=== PATIENT | male | born 1965 | race Caucasian/White ===

== ENCOUNTER 2017-05-27 11:17 | Outpatient (CLI) | payer OTHER | END 2017-05-27 11:18 | disposition home or self-care (01) | LOC: SC 11:17 | PROVIDERS: ATTEND Internal Medicine Pulmonary Disease | DX: G47.33 Obstructive sleep apnea (adult) (pediatric) (principal) | CPT/HCPCS: 99203; 99212 ==

== ENCOUNTER 2019-04-20 14:00 | Outpatient (CLI) | payer OTHER ==
--- NOTE | 2019-04-20 17:03 | SLEEP CARE CONSULTATION ---
Information from patient questionnaire entered by Guerda Nam. I have reviewed and concur with the information entered by Guerda Nam. This document represents the service I personally performed and the decisions made by me, Jsoe Leroy MD, [facility]. History of Present Illness Previous diagnosis: Moderate, Obstructive Sleep Apnea-Hypopnea Syndrome AHI: 24.2 Reason for follow up: annual (last seen 2018) Equipment type: CPAP Equipment obtained from: [employer] Mask style: Nasal pillows Mask brand: Resmed HPI additional information: HPI: Mr. Mayberry returned today for follow up of nasal CPAP therapy. He was diagnosed to have moderate obstructive sleep apnea-hypopnea syndrome. The patient wears a Respironics DreamWear full face mask. [employer] is his durable medical supplier. He reports using the device nightly and all through the night. The patient did not bring his memory card. He complained of occasional facial discomfort but no particular problem with the device such as dry nose, epistaxis, nasal congestion or headache. He thinks that the pressure of 12 cmH2O is comfortable. On the CPAP therapy he notices improvement in his sleep quality, and that he wakes up feeling fresher in the morning and more awake/alert during the day. His notices no snore at all. Subjective Patient concerns: reports: mask discomfort Initial [place] Sleepiness Scale score: 6 (in 2009) Current [place] Sleepiness Scale score: 4 Allergies and Home Medications Drug allergies reviewed: Yes Home medication list reviewed: Yes Review of Systems Review of systems same as previous: Yes Physical Exam Height: 5 ft 10 in Weight: 205 lb Body Mass Index: 29.4 BMI Classification: Overweight Impression and Plan IMPRESSION: 1. Obstructive Sleep Apnea-Hypopnea Syndrome, moderate, with the patient doing well on nasal CPAP therapy. He has excellent compliance and significant clinical improvement. The current pressure is comfortable but the effectiveness is unknown. His mask fits well. Overall, he is very satisfied with treatment and plans to continue with it long-term. No adjustment is necessary today. Because the CPAP is now older than the useful life of 5 years, I will order the patient a new one and make it an autoCPAP set between 10 and 14 cmH2O. PLAN: 1. Prescription made for an autoCPAP, heated humidifier, and related supplies. 2. Try to lose weight 3. Return for follow up after one month on the new machine. I spent 100% of this visit face to face with the patient with greater than 50% of this was spent time counseling the patient and coordination of care.
== END 2019-04-20 14:01 | disposition home or self-care (01) ==
LOC: SC 14:00
PROVIDERS: ATTEND Internal Medicine Pulmonary Disease
DX: G47.33 Obstructive sleep apnea (adult) (pediatric) (principal); E66.3 Overweight; Z68.29 Body mass index [BMI] 29.0-29.9, adult
CPT/HCPCS: 99212; 99213

== ENCOUNTER 2019-06-07 16:17 | Outpatient (CLI) | payer OTHER ==
--- NOTE | 2019-06-07 11:01 | SLEEP CARE CONSULTATION ---
Information from patient questionnaire entered by Libby Bauman. I have reviewed and concur with the information entered by Libby Bauman. This document represents the service I personally performed and the decisions made by me, Louise Fuller, RN, MSN, [employer]. History of Present Illness Service Date and Time: 06/07/2019 1030 Previous diagnosis: Moderate, Obstructive Sleep Apnea-Hypopnea Syndrome AHI: 24.2 Reason for follow up: first compliance after device update Equipment type: CPAP Equipment obtained from: [employer] (getting supplies as needed) Mask style: Full face Backup mask available: Yes (old mask) Last cushion change: none since set up - aware to update as needed CPAP Compliance Data - Data Reviewed with Patient Average duration of nightly device use: 7h 33m Compliance rate %: 100 Current pressure setting (cmH2O): 10-14 Humidity settin Heated hose settin Average residual AHI: 1.9 Average large leak: 6m 56s Subjective Patient concerns: reports: other (does not turn on with breath intake as previous device - inconvenient due to placement of CPAP ). denies: aerophagia, mask discomfort, air blowing in eyes, mask leak noise, condensation in mask/hose, nasal congestion, dry mouth, nose, throat, epistaxis Observed to snore while using device: No Current pressure setting perceived as: no as high as before -different - no air hunger On therapy, patient: reports: awakening more refreshed, being more awake and alert during the day, more rested overall, other. denies: sleeping better (not for past 5-6 weeks ), drowsiness while driving Initial [place] Sleepiness Scale score: 6 (in 2010) Allergies and Home Medications Home medication list reviewed: No (no changes) Review of Systems Review of systems same as previous: Yes Physical Exam Height: 5 ft 10 in Weight: 208 lb (home weight) Body Mass Index: 29.8 BMI Classification: Overweight Impression and Plan 1. Obstructive Sleep Apnea-Hypopnea Syndrome, moderate , with good treatment compliance and good apnea control. On CPAP therapy, the patient is more rested overall. Sleep quality is less the past 5-6 weeks due to things on mind with current pandemic. Thus he was advised to incorporate writing out concerns as a release and then engage in quiet activity until tired. This can be done before bed or when awakens. If still sleep concerns, he is to notify this office for further evaluation and a sleep diary will be sent. For comfort of CPAP pressure I will raise it slightly to [id number]. He is advised to contact me if uncomfortable. For ease of initiating treatment, I will add auto on. In addition, I will turn off auto off so that device does not turn off if large mask leaks. Since patient is over weight, he is advised to lose weight for [employer]. A diet consultation is best option with referral by PCP if he desires. I explained how significant weight can affect his apnea severity and CPAP pressure requirements, and symptoms to report discussed. Patient's apnea severity and rationale for treatment to reduce apnea, improve sleep quality and reduce hypertension cardiovascular and cerebrovascular events was reviewed as well as benefit to other diseases such as diabetes. * Change auto CPAP pressure to 11-14 cmH2O * Add auto on * change auto off to off * Implement measures to improve sleep quality. * Notify me if snoring with mask or feeling that the pressure is too much or too little * Attempt to lose weight * Call this office if any problems using CPAP * Return for follow up in 1 year , or sooner if concerns arise Visit Type: Telehealth Video (to minimize Covid 19 exposure risk) Video Type: [employer] Patient Location: Home Location of Provider: Home Patient agrees and consents to this telehealth visit type: Yes Patient agrees to have their insurance billed: Yes Provider Statement: I spent 100% of the Telehealth Video Call with the patient with greater than 50% spent counseling the patient and coordination of care.
== END 2019-06-07 16:18 | disposition home or self-care (01) ==
LOC: SC 16:17
PROVIDERS: ATTEND Nurse Practitioner Family
DX: G47.33 Obstructive sleep apnea (adult) (pediatric) (principal); E66.3 Overweight; Z68.29 Body mass index [BMI] 29.0-29.9, adult